=== PATIENT | female | born 1960 ===

== ENCOUNTER 2020-05-04 05:30 | Day surgery (SDC) | payer OTHER ==
[~2020-05-04 05:30] MED LIST: AMLODIPI PO; ATORVASTATIN CA20 MG PO; COZAAR50 MG PO
[2020-05-04] MEDS ORDERED: MACROBID 100 M100 MG PO (08:52)
[2020-05-04] MEDS ORDERED: ULTRACET PO (08:52)
== END 2020-05-04 12:25 | disposition home or self-care (01) ==
LOC: CIR.AMB 05:30 → ADM 11:45 → CIR.AMB 12:25
PROVIDERS: ATTEND Obstetrics & Gynecology Gynecology
DX: N39.3 Stress incontinence (female) (male) (principal)
CPT/HCPCS: 57288; C1771